=== PATIENT | male | born 1940 | race Caucasian/White ===

== ENCOUNTER → 2018-12-28 | Outpatient (CLI) | payer MEDICARE, OTHER | LOC: RAD 15:00 | DX: R05 Cough (principal) ==

== ENCOUNTER → 2019-07-01 | Outpatient (CLI) | payer MEDICARE, OTHER ==
[2019-07-01 10:38] LABS: PH-URINE 5.5 (5.0 - 8.0); URINE APPEARANCE CLOUDY; URINE BILIRUBIN NEGATIVE (NEGATIVE); URINE BLOOD 50 ery/uL (NEGATIVE); URINE COLOR YELLOW; URINE GLUCOSE NEGATIVE (NEGATIVE); URINE KETONE NEGATIVE (NEGATIVE); URINE LEUKOCYTE ESTERASE 2+ (NEGATIVE); URINE MUCUS PRESENT (NOT PRESENT); URINE NITRATE POSITIVE (NEGATIVE); URINE PROTEIN(semi-quant) TRACE mg/dL (NEGATIVE); URINE UROBILINOGEN NORMAL (NORMAL); URINE WBC 31-50 /hpf (0-3)
== END ==
LOC: LAB 09:00
PROVIDERS: Nurse Practitioner
DX: R10.9 Unspecified abdominal pain (principal)

== ENCOUNTER → 2019-08-07 | Outpatient (CLI) | payer MEDICARE, OTHER | LOC: LAB 09:05 | DX: N30.01 Acute cystitis with hematuria (principal) ==

== ENCOUNTER → 2019-08-15 | Outpatient (CLI) | payer MEDICARE, OTHER ==
[2019-08-15 11:15] LABS: ALBUMIN 3.9 g/dL (3.4-4.8); POTASSIUM 4.3 mmol/L (3.5-5.1)
[2019-08-15 11:16] LABS: CALCIUM 9.3 mg/dL (8.3-10.5)
[2019-08-15 11:17] LABS: TOTAL PROTEIN 7.3 g/dL (6.2-8.1)
[2019-08-15 11:19] LABS: TOTAL BILIRUBIN 0.5 mg/dL (0.2-1.2)
[2019-08-15 11:24] LABS: MAGNESIUM 1.97 mg/dL (1.60-2.60)
[2019-08-15 11:43] LABS: HEMATOCRIT 44.6 % (42.0-52.0); HEMOGLOBIN 14.8 g/dL (13.5-18.0); MEAN CELL VOLUME 92 fl (78-100); MEAN CORPUSCULAR HEMOGLOBIN 31 pg (27-31); MEAN CORPUSCULAR HGB CONC 33 g/dL (33-37); MEAN PLATELET VOLUME 8.5 fl (7.4-10.4); PLATELET COUNT 301 K/mm3 (130-400); RED BLOOD COUNT 4.83 M/mm3 (4.20-5.60); WHITE BLOOD COUNT 6.3 K/mm3 (4.8-10.8)
[2019-08-15 12:00] LABS: LYMPHOCYTE 21 % (20-51); MONOCYTE 8 % (3-10); NEUTROPHILS 69 % (42-75)
[2019-08-15 12:43] LABS: ERYTHROCYTE SEDIMENTATION RATE 20 mm/hr (0-20)
[2019-08-16 01:31] LABS: TESTOSTERONE 183 ng/dL (221-716)
== END ==
LOC: LAB 10:49
PROVIDERS: Internal Medicine
DX: Z12.5 Encounter for screening for malignant neoplasm of prostate (principal); Z12.11 Encounter for screening for malignant neoplasm of colon; E78.2 Mixed hyperlipidemia; N52.9 Male erectile dysfunction, unspecified; D64.9 Anemia, unspecified; R20.2 Paresthesia of skin

== ENCOUNTER → 2019-08-28 | Outpatient (CLI) | payer MEDICARE, OTHER | LOC: LAB 07:50 | DX: N39.0 Urinary tract infection, site not specified (principal) ==

== ENCOUNTER → 2019-09-04 | Outpatient (CLI) | payer MEDICARE, OTHER ==
[2019-09-04 18:07] LABS: FOLLICLE STIMULATING HORMONE 3.2 mIU/mL (1.0-12.0); LUTENIZING HORMONE 1.7 mIU/mL (0.6-12.1); PROLACTIN AMS 7.7 ng/mL (3.5-19.4)
== END ==
LOC: LAB 07:05
PROVIDERS: Internal Medicine
DX: E23.0 Hypopituitarism (principal)

== ENCOUNTER 2019-09-21 09:44 | Emergency (ER) | payer MEDICARE, OTHER ==
[2019-09-21] MEDS ORDERED: CALCIUM 600 MG-1 TAB PO (10:02)
[2019-09-21] MEDS ORDERED: BUSPIRONE HYDRO10 MG PO (10:03)
[2019-09-21 10:47] LABS: HEMATOCRIT 42.8 % (42.0-52.0); HEMOGLOBIN 14.3 g/dL (13.5-18.0); MEAN CELL VOLUME 94 fl (78-100); MEAN CORPUSCULAR HEMOGLOBIN 31 pg (27-31); MEAN CORPUSCULAR HGB CONC 33 g/dL (33-37); MEAN PLATELET VOLUME 8.1 fl (7.4-10.4); PLATELET COUNT 279 K/mm3 (130-400); RED BLOOD COUNT 4.57 M/mm3 (4.20-5.60); RED CELL DISTRIBUTION WIDTH 14.6 % (11.5-14.5); WHITE BLOOD COUNT 7.3 K/mm3 (4.8-10.8)
[2019-09-21 10:52] LABS: ALBUMIN 3.7 g/dL (3.4-4.8)
[2019-09-21 10:53] LABS: POTASSIUM 3.9 mmol/L (3.5-5.1)
[2019-09-21 10:54] LABS: CALCIUM 8.9 mg/dL (8.3-10.5)
[2019-09-21 10:55] LABS: TOTAL PROTEIN 6.7 g/dL (6.2-8.1)
[2019-09-21 10:57] LABS: TOTAL BILIRUBIN 0.9 mg/dL (0.2-1.2)
[2019-09-21 11:10] LABS: LYMPHOCYTE 16 % (20-51); MONOCYTE 12 % (3-10); NEUTROPHILS 70 % (42-75)
[2019-09-21 11:55] VITALS: BP 134/86
== END 2019-09-21 11:56 | disposition home or self-care (01) ==
LOC: ED 09:44
PROVIDERS: Family Medicine
DX: G40.909 Epilepsy, unspecified, not intractable, without status epilepticus (principal); Z90.89 Acquired absence of other organs

== ENCOUNTER 2020-03-31 16:12 | Emergency (ER) | payer MEDICARE, OTHER ==
[~2020-03-31] VITALS: Ht 182.9 cm; Wt 100.3 kg
[~2020-03-31 16:12] MED LIST: BUSPIRONE HYDRO10 MG PO; CALCIUM 600 MG-1 TAB PO
[2020-03-31 17:13] LABS: HEMATOCRIT 49.7 % (42.0-52.0); HEMOGLOBIN 16.9 g/dL (13.5-18.0); MEAN CELL VOLUME 93 fl (78-100); MEAN CORPUSCULAR HEMOGLOBIN 32 pg (27-31); MEAN CORPUSCULAR HGB CONC 34 g/dL (33-37); MEAN PLATELET VOLUME 8.2 fl (7.4-10.4); PLATELET COUNT 268 K/mm3 (130-400); RED BLOOD COUNT 5.35 M/mm3 (4.20-5.60); RED CELL DISTRIBUTION WIDTH 14.4 % (11.5-14.5)
[2020-03-31 17:23] LABS: POTASSIUM 4.2 mmol/L (3.5-5.1); SODIUM 139 mmol/L (136-145)
[2020-03-31 17:25] LABS: CALCIUM 9.4 mg/dL (8.3-10.5)
[2020-03-31 17:26] LABS: GLUCOSE 123 mg/dL (75-110); TOTAL PROTEIN 7.2 g/dL (6.2-8.1)
[2020-03-31 17:28] LABS: TOTAL BILIRUBIN 0.4 mg/dL (0.2-1.2)
[2020-03-31 17:30] LABS: LYMPHOCYTE 6 % (20-51); MONOCYTE 10 % (3-10); NEUTROPHILS 82 % (42-75)
[2020-03-31 17:31] LABS: AST-SGOT 30 U/L (5-34)
[2020-03-31 17:32] LABS: ALT/SGPT 27 U/L (0-55)
[2020-03-31 17:35] LABS: CARBON DIOXIDE 14 mmol/L (23-31)
[2020-03-31 17:38] LABS: TROPONIN-I < 0.03 ng/mL (<0.030)
[2020-03-31] MEDS ORDERED: SERTRALINE50 MG PO (17:40)
[2020-03-31] MEDS ORDERED: QUETIAPINE FUMA25 M3 PO (17:45)
[2020-03-31] MEDS ORDERED: BACTRIM DS TAB1 EACH PO (17:50)
[2020-03-31 19:41] LABS: URINE APPEARANCE CLOUDY; URINE BILIRUBIN NEGATIVE (NEGATIVE); URINE BLOOD TRACE (NEGATIVE); URINE COLOR YELLOW; URINE GLUCOSE NEGATIVE (NEGATIVE); URINE KETONE NEGATIVE (NEGATIVE); URINE LEUKOCYTE ESTERASE 1+ (NEGATIVE); URINE NITRATE POSITIVE (NEGATIVE); URINE PROTEIN(semi-quant) 1+ mg/dL (NEGATIVE); URINE UROBILINOGEN NORMAL (NORMAL); URINE WBC 16-30 /hpf (0-3)
[2020-03-31 21:18] VITALS: BP 144/85
== END 2020-03-31 21:18 | disposition short-term general hospital (02) ==
LOC: ED 16:12
PROVIDERS: Nurse Practitioner Family
DX: N17.9 Acute kidney failure, unspecified (principal); N39.0 Urinary tract infection, site not specified; G40.89 Other seizures; R42 Dizziness and giddiness; F32.9 Major depressive disorder, single episode, unspecified
CPT/HCPCS: J0696; J1953; J7030

== ENCOUNTER → 2020-04-10 | Outpatient (CLI) | payer MEDICARE, OTHER ==
[2020-03-31 21:18] VITALS: BP 144/85
[~2020-04-10] MED LIST changes: +BACTRIM DS TAB1 EACH PO; +QUETIAPINE FUMA25 M3 PO; +SERTRALINE50 MG PO
[2020-04-10 16:38] LABS: HEMATOCRIT 50.8 % (42.0-52.0); HEMOGLOBIN 16.4 g/dL (13.5-18.0); MEAN CELL VOLUME 98 fl (78-100); MEAN CORPUSCULAR HEMOGLOBIN 32 pg (27-31); MEAN CORPUSCULAR HGB CONC 32 g/dL (33-37); MEAN PLATELET VOLUME 9.5 fl (7.4-10.4); PLATELET COUNT 143 K/mm3 (130-400); RED BLOOD COUNT 5.18 M/mm3 (4.20-5.60); RED CELL DISTRIBUTION WIDTH 14.2 % (11.5-14.5); WHITE BLOOD COUNT 6.9 K/mm3 (4.8-10.8)
[2020-04-10 16:45] LABS: ALBUMIN 3.8 g/dL (3.4-4.8)
[2020-04-10 16:46] LABS: POTASSIUM 4.5 mmol/L (3.5-5.1)
[2020-04-10 16:47] LABS: CALCIUM 8.9 mg/dL (8.3-10.5)
[2020-04-10 16:48] LABS: TOTAL PROTEIN 7.2 g/dL (6.2-8.1)
[2020-04-10 16:50] LABS: TOTAL BILIRUBIN 0.3 mg/dL (0.2-1.2)
[2020-04-10 16:52] LABS: LYMPHOCYTE 20 % (20-51); MONOCYTE 12 % (3-10); NEUTROPHILS 60 % (42-75)
== END ==
LOC: LAB 16:14
PROVIDERS: Internal Medicine
DX: F44.5 Conversion disorder with seizures or convulsions (principal); R20.2 Paresthesia of skin

== ENCOUNTER → 2020-05-04 | Outpatient (CLI) | payer MEDICARE, OTHER ==
[2020-05-04 12:09] LABS: HEMATOCRIT 49.7 % (42.0-52.0); HEMOGLOBIN 16.4 g/dL (13.5-18.0); MEAN CELL VOLUME 95 fl (78-100); MEAN CORPUSCULAR HEMOGLOBIN 32 pg (27-31); MEAN CORPUSCULAR HGB CONC 33 g/dL (33-37); MEAN PLATELET VOLUME 8.7 fl (7.4-10.4); PLATELET COUNT 214 K/mm3 (130-400); RED BLOOD COUNT 5.21 M/mm3 (4.20-5.60); WHITE BLOOD COUNT 6.7 K/mm3 (4.8-10.8)
[2020-05-04 12:20] LABS: LYMPHOCYTE 20 % (20-51); MONOCYTE 11 % (3-10); NEUTROPHILS 68 % (42-75)
[2020-05-04 12:24] LABS: ALBUMIN 3.9 g/dL (3.4-4.8)
[2020-05-04 12:25] LABS: POTASSIUM 4.7 mmol/L (3.5-5.1)
[2020-05-04 12:27] LABS: TOTAL PROTEIN 7.2 g/dL (6.2-8.1)
[2020-05-04 12:29] LABS: TOTAL BILIRUBIN 0.4 mg/dL (0.2-1.2)
== END ==
LOC: LAB 11:55
PROVIDERS: Internal Medicine
DX: F44.5 Conversion disorder with seizures or convulsions (principal); R20.2 Paresthesia of skin

== ENCOUNTER → 2020-05-07 | Day surgery (SDC) | payer MEDICARE, OTHER | LOC: MSO 07:05 | DX: K21.9 Gastro-esophageal reflux disease without esophagitis (principal); K22.2 Esophageal obstruction; G47.33 Obstructive sleep apnea (adult) (pediatric); F41.9 Anxiety disorder, unspecified; Z92.21 Personal history of antineoplastic chemotherapy; Z88.1 Allergy status to other antibiotic agents; Z79.52 Long term (current) use of systemic steroids; Z90.49 Acquired absence of other specified parts of digestive tract; Z85.51 Personal history of malignant neoplasm of bladder; Z96.653 Presence of artificial knee joint, bilateral | CPT/HCPCS: 00731; C1769; J2704; J7120 ==

== ENCOUNTER → 2020-05-11 | Outpatient (CLI) | payer MEDICARE, OTHER | LOC: RAD 10:58 | DX: M25.512 Pain in left shoulder (principal) ==

== ENCOUNTER → 2020-05-19 | Outpatient (CLI) | payer MEDICARE, OTHER | LOC: RAD 08:08 | DX: M75.112 Incomplete rotator cuff tear or rupture of left shoulder, not specified as traumatic (principal); S43.002A Unspecified subluxation of left shoulder joint, initial encounter; M19.012 Primary osteoarthritis, left shoulder; M67.814 Other specified disorders of tendon, left shoulder ==

== ENCOUNTER 2020-06-30 08:30 | Outpatient (RCR) | payer MEDICARE | END 2020-06-30 09:00 | disposition still patient (30) | LOC: PT 08:30 | DX: M25.512 Pain in left shoulder (principal) ==

== ENCOUNTER → 2020-08-13 | Outpatient (CLI) | payer MEDICARE ==
[2020-08-13 09:45] LABS: HEMATOCRIT 50.4 % (42.0-52.0); HEMOGLOBIN 16.6 g/dL (13.5-18.0); MEAN CELL VOLUME 96 fl (78-100); MEAN CORPUSCULAR HEMOGLOBIN 32 pg (27-31); MEAN CORPUSCULAR HGB CONC 33 g/dL (33-37); MEAN PLATELET VOLUME 9.1 fl (7.4-10.4); PLATELET COUNT 224 K/mm3 (130-400); RED BLOOD COUNT 5.23 M/mm3 (4.20-5.60); RED CELL DISTRIBUTION WIDTH 13.8 % (11.5-14.5); WHITE BLOOD COUNT 5.9 K/mm3 (4.8-10.8)
[2020-08-13 09:46] LABS: ALBUMIN 3.8 g/dL (3.4-4.8)
[2020-08-13 09:47] LABS: POTASSIUM 4.2 mmol/L (3.5-5.1)
[2020-08-13 09:48] LABS: CALCIUM 8.7 mg/dL (8.3-10.5)
[2020-08-13 09:49] LABS: TOTAL PROTEIN 7.2 g/dL (6.2-8.1)
[2020-08-13 09:51] LABS: TOTAL BILIRUBIN 0.6 mg/dL (0.2-1.2)
[2020-08-13 10:32] LABS: LYMPHOCYTE 27 % (20-51); MONOCYTE 15 % (3-10); NEUTROPHILS 55 % (42-75)
== END ==
LOC: LAB 08:43
DX: Z51.81 Encounter for therapeutic drug level monitoring (principal); Z79.899 Other long term (current) drug therapy

== ENCOUNTER → 2020-09-11 | Outpatient (CLI) | payer MEDICARE | LOC: RAD 10:33 | DX: M19.032 Primary osteoarthritis, left wrist (principal); M25.832 Other specified joint disorders, left wrist ==

== ENCOUNTER → 2020-09-18 | Outpatient (CLI) | payer MEDICARE ==
[~2020-09-18] MED LIST changes: +CEFDINIR300 MG PO; +CLARITIN 1010 MG/TAB PO; +DIVALPROEX SOD500 M2 PO; +PANTOPRAZOLE SO40 MG PO; +TESTOSTERO200 MG/1 M IM; +TRAMADOL 50 MG TAB PO; +[UNRECOGNIZED DRUG - CODE] PO
== END ==
LOC: CARDREHAB 07:50
DX: R06.09 Other forms of dyspnea (principal)
CPT/HCPCS: A9500

== ENCOUNTER 2020-09-21 01:51 | Emergency (ER) | payer MEDICARE ==
[~2020-09-21 01:51] MED LIST changes: -CEFDINIR300 MG PO; -CLARITIN 1010 MG/TAB PO; -DIVALPROEX SOD500 M2 PO; -PANTOPRAZOLE SO40 MG PO; -TESTOSTERO200 MG/1 M IM; -TRAMADOL 50 MG TAB PO; -[UNRECOGNIZED DRUG - CODE] PO
[2020-09-21] MEDS ORDERED: TESTOSTERO200 MG/1 M IM (02:10)
[2020-09-21] MEDS ORDERED: PANTOPRAZOLE SO40 MG PO (02:11)
[2020-09-21] MEDS ORDERED: DIVALPROEX SOD500 M2 PO (02:11)
[2020-09-21] MEDS ORDERED: CLARITIN 1010 MG/TAB PO (02:11)
[2020-09-21] MEDS ORDERED: [UNRECOGNIZED DRUG - CODE] PO (02:11)
[2020-09-21] MEDS ORDERED: TRAMADOL 50 MG TAB PO (02:11)
[2020-09-21 02:39] LABS: HEMOGLOBIN 15.6 g/dL (13.5-18.0); MEAN CELL VOLUME 95 fl (78-100); MEAN CORPUSCULAR HEMOGLOBIN 32 pg (27-31); MEAN CORPUSCULAR HGB CONC 33 g/dL (33-37); MEAN PLATELET VOLUME 8.9 fl (7.4-10.4); PLATELET COUNT 191 K/mm3 (130-400); RED BLOOD COUNT 4.94 M/mm3 (4.20-5.60); RED CELL DISTRIBUTION WIDTH 14.1 % (11.5-14.5); WHITE BLOOD COUNT 14.6 K/mm3 (4.8-10.8)
[2020-09-21 02:49] LABS: URINE APPEARANCE CLOUDY; URINE BILIRUBIN NEGATIVE (NEGATIVE); URINE BLOOD 50 ery/uL (NEGATIVE); URINE COLOR YELLOW; URINE GLUCOSE NEGATIVE (NEGATIVE); URINE KETONE NEGATIVE (NEGATIVE); URINE NITRATE POSITIVE (NEGATIVE); URINE PROTEIN(semi-quant) 2+ mg/dL (NEGATIVE); URINE UROBILINOGEN NORMAL (NORMAL)
[2020-09-21 02:50] LABS: URINE LEUKOCYTE ESTERASE 2+ (NEGATIVE); URINE WBC >50 /hpf (0-3)
[2020-09-21 02:50] LABS: POTASSIUM 4.3 mmol/L (3.5-5.1)
[2020-09-21 02:51] LABS: CALCIUM 8.9 mg/dL (8.3-10.5)
[2020-09-21 03:00] LABS: BAND 1 % (0-10); LYMPHOCYTE 8 % (20-51); MONOCYTE 17 % (3-10); NEUTROPHILS 74 % (42-75)
[2020-09-21 06:32] VITALS: BP 117/80
== END 2020-09-21 06:35 | disposition other institution (70) ==
LOC: ED 01:51
PROVIDERS: Family Medicine
DX: N17.9 Acute kidney failure, unspecified (principal); N18.9 Chronic kidney disease, unspecified; N39.0 Urinary tract infection, site not specified; E86.9 Volume depletion, unspecified; G40.909 Epilepsy, unspecified, not intractable, without status epilepticus; K21.9 Gastro-esophageal reflux disease without esophagitis; Z20.828 Contact with and (suspected) exposure to other viral communicable diseases; Z87.820 Personal history of traumatic brain injury
CPT/HCPCS: J0696; J7030

== ENCOUNTER 2020-09-21 06:25 | Inpatient (IN) | payer MEDICARE ==
[~2020-09-21] VITALS: Ht 180.3 cm; Wt 102.6 kg
[~2020-09-21 06:25] MED LIST changes: +CLARITIN 1010 MG/TAB PO; +DIVALPROEX SOD500 M2 PO; +PANTOPRAZOLE SO40 MG PO; +TESTOSTERO200 MG/1 M IM; +TRAMADOL 50 MG TAB PO; +[UNRECOGNIZED DRUG - CODE] PO
[2020-09-21 06:39] VITALS: BP 117/80
--- NOTE | 2020-09-21 08:30 | NUR ---
THE PT IS NOTED TO FREQUENTLY GET OUT OF BED WITHOUT CALLING, SETTING OFF BED ALARM MULTIPLE TIMES. PT IS RE-EDUCATED MULTIPLE TIMES REGARDING FALL PRECAUTIONS. PT CONTINUES TO DISREGARD PRECAUTIONS. PT IS NOTED TO BE STEADY ON FEET AND BED ALARM IS ON AT THIS TIME.
--- NOTE | 2020-09-21 09:52 | NUR ---
PT REQUESTS HIS CAT TO BE BROUGHT TO THE HOSPITAL. THIS RN EDUCATES THE PT THAT WE DO NOT ALLOW CATS IN FACILITY.
[2020-09-21 09:57] VITALS: BP 140/89
[2020-09-21 10:42] LABS: HEMATOCRIT 43.2 % (42.0-52.0); HEMOGLOBIN 14.2 g/dL (13.5-18.0); MEAN CELL VOLUME 96 fl (78-100); MEAN CORPUSCULAR HEMOGLOBIN 32 pg (27-31); MEAN CORPUSCULAR HGB CONC 33 g/dL (33-37); MEAN PLATELET VOLUME 8.9 fl (7.4-10.4); PLATELET COUNT 181 K/mm3 (130-400); RED BLOOD COUNT 4.51 M/mm3 (4.20-5.60); RED CELL DISTRIBUTION WIDTH 13.9 % (11.5-14.5); WHITE BLOOD COUNT 12.9 K/mm3 (4.8-10.8)
[2020-09-21 10:46] LABS: ALBUMIN 3.4 g/dL (3.4-4.8); POTASSIUM 4.2 mmol/L (3.5-5.1)
[2020-09-21 10:47] LABS: CALCIUM 8.3 mg/dL (8.3-10.5)
[2020-09-21 10:48] LABS: TOTAL PROTEIN 6.5 g/dL (6.2-8.1)
[2020-09-21 10:50] LABS: TOTAL BILIRUBIN 0.7 mg/dL (0.2-1.2)
[2020-09-21 11:20] LABS: BAND 4 % (0-10); LYMPHOCYTE 9 % (20-51); MONOCYTE 13 % (3-10); NEUTROPHILS 73 % (42-75)
[2020-09-21 14:14] VITALS: BP 143/81
[2020-09-21 17:31] VITALS: BP 141/82
--- NOTE | 2020-09-21 20:45 | NUR ---
Patient rests in bed. Denies shortness of breath, couph or pain. Alert. HS meds all reviewed and taken without problems. Home CPAP brought into patient and nurse assists to plug in, patient assembles, inserts distilled water and applies.
[2020-09-21 21:09] VITALS: BP 126/75
[2020-09-22 01:40] VITALS: BP 144/90
--- NOTE | 2020-09-22 02:30 | NUR ---
Patient awakened for IV ABT. Reports he's been sleeping well.
[2020-09-22 04:40] VITALS: BP 128/75
--- NOTE | 2020-09-22 05:23 | NUR ---
Patient awakened for am med. Denies pain. Sprite given per request. Patient is out of covid precautions due to send out results negative.
[2020-09-22 05:51] LABS: HEMATOCRIT 42.1 % (42.0-52.0); HEMOGLOBIN 13.6 g/dL (13.5-18.0); MEAN CELL VOLUME 97 fl (78-100); MEAN CORPUSCULAR HEMOGLOBIN 31 pg (27-31); MEAN CORPUSCULAR HGB CONC 32 g/dL (33-37); PLATELET COUNT 171 K/mm3 (130-400); RED BLOOD COUNT 4.35 M/mm3 (4.20-5.60); WHITE BLOOD COUNT 8.6 K/mm3 (4.8-10.8)
[2020-09-22 05:59] LABS: CALCIUM 8.4 mg/dL (8.3-10.5)
[2020-09-22 06:57] LABS: NEUTROPHILS 78 % (42-75)
[2020-09-22 06:58] LABS: LYMPHOCYTE 6 % (20-51); MONOCYTE 15 % (3-10)
--- NOTE | 2020-09-22 09:34 | NUR ---
PT'S UPDATED ON PLAN OF CARE. PT IS ALERT AND ORIENTED AND RESPIRATIONS ARE EVEN AND UNLABORED. THE PT DENIES ANY PAIN AND/OR NEEDS AT THIS TIME.
[2020-09-22 09:48] VITALS: BP 129/80
[2020-09-22 11:06] LABS: ERYTHROCYTE SEDIMENTATION RATE 47 mm/hr (0-20)
[2020-09-22 14:15] VITALS: BP 136/86
[2020-09-22 17:14] VITALS: BP 133/78
--- NOTE | 2020-09-22 19:00 | NUR ---
Report received from Vanessa MOLINA.
--- NOTE | 2020-09-22 20:10 | NUR ---
Patient sitting up in bed watching News on TV. Denies pain or needs at this time. HS meds all reviewed and given. Urostomy draining clear yellow urine.
--- NOTE | 2020-09-22 22:00 | NUR ---
Patient reports frontal headache 03/11 and requests tylenol-given. States he does have a history of headaches.
[2020-09-22 22:15] VITALS: BP 136/90
--- NOTE | 2020-09-23 02:04 | NUR ---
Patient awakened for vitals. Reports that he's been sleeping. Denies pain or headache.
[2020-09-23 02:12] VITALS: BP 128/75
--- NOTE | 2020-09-23 05:23 | NUR ---
Awakened for med and vitals. States his urostomy bag fell off earlier and he changed it out. Denies needs.
[2020-09-23 06:02] VITALS: BP 125/70
--- NOTE | 2020-09-23 06:55 | NUR ---
Report received from TRACY Nguyen.
[2020-09-23 09:15] LABS: HEMATOCRIT 46.7 % (42.0-52.0); HEMOGLOBIN 15.4 g/dL (13.5-18.0); MEAN CELL VOLUME 96 fl (78-100); MEAN CORPUSCULAR HEMOGLOBIN 32 pg (27-31); MEAN CORPUSCULAR HGB CONC 33 g/dL (33-37); MEAN PLATELET VOLUME 8.9 fl (7.4-10.4); PLATELET COUNT 208 K/mm3 (130-400); RED BLOOD COUNT 4.89 M/mm3 (4.20-5.60); RED CELL DISTRIBUTION WIDTH 14.1 % (11.5-14.5); WHITE BLOOD COUNT 6.4 K/mm3 (4.8-10.8)
[2020-09-23 09:25] LABS: ALBUMIN 3.7 g/dL (3.4-4.8); POTASSIUM 4.2 mmol/L (3.5-5.1)
[2020-09-23 09:26] LABS: CALCIUM 9.1 mg/dL (8.3-10.5)
[2020-09-23 09:27] LABS: TOTAL PROTEIN 7.4 g/dL (6.2-8.1)
[2020-09-23 09:29] LABS: TOTAL BILIRUBIN 0.6 mg/dL (0.2-1.2)
[2020-09-23 09:42] VITALS: BP 145/93
[2020-09-23 09:59] LABS: LYMPHOCYTE 26 % (20-51); MONOCYTE 18 % (3-10); NEUTROPHILS 55 % (42-75)
--- NOTE | 2020-09-23 10:01 | NUR ---
Provider in room with pt.
[2020-09-23] MEDS ORDERED: CEFDINIR300 MG PO (10:09)
--- NOTE | 2020-09-23 11:15 | NUR ---
Pt to be discharged home today. called and notified of discharge. She will provide transportation home. Discharge instructions provided. Pt denied any questions or concerns at this time.
--- NOTE | 2020-09-23 11:45 | NUR ---
Pt escorted out of facilty to his 's POV with all belongs.
== END 2020-09-23 11:45 | disposition home or self-care (01) | DRG 690 ==
LOC: MED/SURG 06:25
PROVIDERS: Physician Assistant; ADMIT Family Medicine
PROC: 5A09357 Assistance with Respiratory Ventilation, Less than 24 Consecutive Hours, Continuous Positive Airway Pressure (ICD-10-PCS; principal; 2020-09-21)
DX: N39.0 Urinary tract infection, site not specified (principal); N17.9 Acute kidney failure, unspecified; G47.30 Sleep apnea, unspecified; G40.909 Epilepsy, unspecified, not intractable, without status epilepticus; N18.9 Chronic kidney disease, unspecified; K21.9 Gastro-esophageal reflux disease without esophagitis; K22.2 Esophageal obstruction; F41.9 Anxiety disorder, unspecified; K59.00 Constipation, unspecified; Z20.828 Contact with and (suspected) exposure to other viral communicable diseases; Z79.891 Long term (current) use of opiate analgesic; Z79.890 Hormone replacement therapy; Z85.51 Personal history of malignant neoplasm of bladder; Z87.820 Personal history of traumatic brain injury
CPT/HCPCS: J0696; J1650

== ENCOUNTER → 2020-12-21 | Outpatient (CLI) | payer MEDICARE ==
[~2020-12-21] MED LIST changes: +CEFDINIR300 MG PO; +CIPRO500 M1 PO; +MACROBID 100 M100 MG PO; +PERCOCET 325 MG1 TA2 PO; +VALIUM 2MG T2 MG/TAB PO; +ZOLOFT 100MG100 MG PO
[2020-12-21 10:16] LABS: HEMATOCRIT 52.5 % (42.0-52.0); HEMOGLOBIN 17.2 g/dL (13.5-18.0); MEAN CELL VOLUME 96 fl (78-100); MEAN CORPUSCULAR HEMOGLOBIN 31 pg (27-31); MEAN CORPUSCULAR HGB CONC 33 g/dL (33-37); MEAN PLATELET VOLUME 9.1 fl (7.4-10.4); PLATELET COUNT 220 K/mm3 (130-400); RED BLOOD COUNT 5.49 M/mm3 (4.20-5.60); RED CELL DISTRIBUTION WIDTH 13.8 % (11.5-14.5); WHITE BLOOD COUNT 6.6 K/mm3 (4.8-10.8)
[2020-12-21 10:20] LABS: ALBUMIN 4.2 g/dL (3.4-4.8); POTASSIUM 4.5 mmol/L (3.5-5.1)
[2020-12-21 10:21] LABS: CALCIUM 9.1 mg/dL (8.3-10.5)
[2020-12-21 10:23] LABS: TOTAL PROTEIN 7.7 g/dL (6.2-8.1)
[2020-12-21 10:24] LABS: TOTAL BILIRUBIN 0.7 mg/dL (0.2-1.2)
[2020-12-21 10:33] LABS: BAND 1 % (0-10); LYMPHOCYTE 18 % (20-51); MONOCYTE 11 % (3-10); NEUTROPHILS 68 % (42-75)
[2020-12-25 21:38] LABS: TESTOSTERONE 94 ng/dL (221-716)
== END ==
LOC: LAB 09:15
PROVIDERS: Internal Medicine
DX: Z12.5 Encounter for screening for malignant neoplasm of prostate (principal); E23.7 Disorder of pituitary gland, unspecified; E78.2 Mixed hyperlipidemia; G40.909 Epilepsy, unspecified, not intractable, without status epilepticus

== ENCOUNTER 2021-01-12 06:42 | Emergency (ER) | payer MEDICARE ==
[~2021-01-12 06:42] MED LIST changes: -CIPRO500 M1 PO; -MACROBID 100 M100 MG PO; -PERCOCET 325 MG1 TA2 PO; -VALIUM 2MG T2 MG/TAB PO; -ZOLOFT 100MG100 MG PO
[2021-01-12 07:41] LABS: HEMATOCRIT 47.6 % (42.0-52.0); HEMOGLOBIN 16.1 g/dL (13.5-18.0); MEAN CELL VOLUME 95 fl (78-100); MEAN CORPUSCULAR HEMOGLOBIN 32 pg (27-31); MEAN CORPUSCULAR HGB CONC 34 g/dL (33-37); MEAN PLATELET VOLUME 8.9 fl (7.4-10.4); PLATELET COUNT 214 K/mm3 (130-400); RED BLOOD COUNT 5.03 M/mm3 (4.20-5.60); WHITE BLOOD COUNT 13.8 K/mm3 (4.8-10.8)
[2021-01-12 08:14] LABS: LYMPHOCYTE 11 % (20-51); MONOCYTE 13 % (3-10); NEUTROPHILS 75 % (42-75)
[2021-01-12 08:18] LABS: ALBUMIN 3.6 g/dL (3.4-4.8); POTASSIUM 4.3 mmol/L (3.5-5.1)
[2021-01-12 08:19] LABS: PH-URINE 6.5 (5.0 - 8.0); URINE APPEARANCE CLOUDY; URINE BILIRUBIN NEGATIVE (NEGATIVE); URINE BLOOD 250 ery/uL (NEGATIVE); URINE COLOR YELLOW; URINE GLUCOSE NEGATIVE (NEGATIVE); URINE KETONE SMALL (NEGATIVE); URINE LEUKOCYTE ESTERASE 2+ (NEGATIVE); URINE NITRATE POSITIVE (NEGATIVE); URINE PROTEIN(semi-quant) 1+ mg/dL (NEGATIVE); URINE UROBILINOGEN NORMAL (NORMAL); URINE WBC >50 /hpf (0-3)
[2021-01-12 08:19] LABS: CALCIUM 8.6 mg/dL (8.3-10.5)
[2021-01-12 08:20] LABS: TOTAL PROTEIN 6.7 g/dL (6.2-8.1)
[2021-01-12 08:22] LABS: TOTAL BILIRUBIN 1.2 mg/dL (0.2-1.2)
[2021-01-12] MEDS ORDERED: CIPRO500 M1 PO (09:57)
[2021-01-12 10:20] VITALS: BP 132/83
== END 2021-01-12 10:06 | disposition home or self-care (01) ==
LOC: ED 06:42
PROVIDERS: Nurse Practitioner
DX: N39.0 Urinary tract infection, site not specified (principal); G40.409 Other generalized epilepsy and epileptic syndromes, not intractable, without status epilepticus; K21.9 Gastro-esophageal reflux disease without esophagitis; Z87.442 Personal history of urinary calculi; Z85.51 Personal history of malignant neoplasm of bladder
CPT/HCPCS: J0696; J7030

== ENCOUNTER 2021-01-18 04:59 | Emergency (ER) | payer MEDICARE ==
[~2021-01-18 04:59] MED LIST changes: +CIPRO500 M1 PO
[2021-01-18] MEDS ORDERED: ZOLOFT 100MG100 MG PO (05:18)
[2021-01-18 06:20] LABS: HEMATOCRIT 50.8 % (42.0-52.0); HEMOGLOBIN 16.4 g/dL (13.5-18.0); MEAN CELL VOLUME 97 fl (78-100); MEAN CORPUSCULAR HEMOGLOBIN 31 pg (27-31); MEAN CORPUSCULAR HGB CONC 32 g/dL (33-37); MEAN PLATELET VOLUME 8.5 fl (7.4-10.4); PLATELET COUNT 320 K/mm3 (130-400); RED BLOOD COUNT 5.24 M/mm3 (4.20-5.60); RED CELL DISTRIBUTION WIDTH 13.9 % (11.5-14.5); WHITE BLOOD COUNT 7.1 K/mm3 (4.8-10.8)
[2021-01-18 06:33] LABS: ALBUMIN 3.6 g/dL (3.4-4.8)
[2021-01-18 06:34] LABS: POTASSIUM 4.6 mmol/L (3.5-5.1)
[2021-01-18 06:35] LABS: CALCIUM 8.7 mg/dL (8.3-10.5)
[2021-01-18 06:36] LABS: TOTAL PROTEIN 7.4 g/dL (6.2-8.1)
[2021-01-18 06:38] LABS: TOTAL BILIRUBIN 0.4 mg/dL (0.2-1.2)
[2021-01-18 06:47] LABS: LYMPHOCYTE 23 % (20-51); MONOCYTE 12 % (3-10); NEUTROPHILS 62 % (42-75)
[2021-01-18 06:51] LABS: URINE APPEARANCE CLOUDY; URINE BILIRUBIN NEGATIVE (NEGATIVE); URINE BLOOD 250 ery/uL (NEGATIVE); URINE COLOR YELLOW; URINE GLUCOSE NEGATIVE (NEGATIVE); URINE KETONE NEGATIVE (NEGATIVE); URINE LEUKOCYTE ESTERASE 2+ (NEGATIVE); URINE NITRATE NEGATIVE (NEGATIVE); URINE PROTEIN(semi-quant) 1+ mg/dL (NEGATIVE); URINE UROBILINOGEN NORMAL (NORMAL)
[2021-01-18] MEDS ORDERED: MACROBID 100 M100 MG PO (09:03)
[2021-01-18] MEDS ORDERED: VALIUM 2MG T2 MG/TAB PO (09:08)
[2021-01-18 09:09] VITALS: BP 131/81
== END 2021-01-18 09:10 | disposition home or self-care (01) ==
LOC: ED 04:59
PROVIDERS: Family Medicine
DX: N39.0 Urinary tract infection, site not specified (principal); G40.909 Epilepsy, unspecified, not intractable, without status epilepticus

== ENCOUNTER 2021-01-23 13:03 | Emergency (ER) | payer MEDICARE ==
[~2021-01-23 13:03] MED LIST changes: +MACROBID 100 M100 MG PO; +VALIUM 2MG T2 MG/TAB PO; +ZOLOFT 100MG100 MG PO
[2021-01-23 14:34] LABS: HEMATOCRIT 55.2 % (42.0-52.0); HEMOGLOBIN 18.4 g/dL (13.5-18.0); MEAN CELL VOLUME 92 fl (78-100); MEAN CORPUSCULAR HEMOGLOBIN 31 pg (27-31); MEAN CORPUSCULAR HGB CONC 33 g/dL (33-37); MEAN PLATELET VOLUME 8.3 fl (7.4-10.4); PLATELET COUNT 494 K/mm3 (130-400); RED BLOOD COUNT 6.03 M/mm3 (4.20-5.60); RED CELL DISTRIBUTION WIDTH 13.5 % (11.5-14.5); WHITE BLOOD COUNT 12.7 K/mm3 (4.8-10.8)
[2021-01-23 14:43] LABS: ALBUMIN 4.2 g/dL (3.4-4.8); POTASSIUM 4.7 mmol/L (3.5-5.1)
[2021-01-23 14:44] LABS: CALCIUM 10.5 mg/dL (8.3-10.5)
[2021-01-23 14:45] LABS: TOTAL PROTEIN 8.4 g/dL (6.2-8.1)
[2021-01-23 14:47] LABS: TOTAL BILIRUBIN 0.6 mg/dL (0.2-1.2)
[2021-01-23 14:54] LABS: BAND 1 % (0-10); LYMPHOCYTE 9 % (20-51); MONOCYTE 7 % (3-10); NEUTROPHILS 83 % (42-75)
[2021-01-23 15:16] LABS: URINE APPEARANCE CLOUDY; URINE BILIRUBIN NEGATIVE (NEGATIVE); URINE BLOOD 50 ery/uL (NEGATIVE); URINE COLOR YELLOW; URINE GLUCOSE NEGATIVE (NEGATIVE); URINE KETONE NEGATIVE (NEGATIVE); URINE LEUKOCYTE ESTERASE 2+ (NEGATIVE); URINE NITRATE POSITIVE (NEGATIVE); URINE PROTEIN(semi-quant) 2+ mg/dL (NEGATIVE); URINE UROBILINOGEN NORMAL (NORMAL)
[2021-01-23 15:17] LABS: URINE WBC 16-30 /hpf (0-3)
[2021-01-23 18:18] VITALS: BP 117/85
== END 2021-01-23 18:20 | disposition short-term general hospital (02) ==
LOC: ED 13:03
PROVIDERS: Family Medicine
DX: K56.609 Unspecified intestinal obstruction, unspecified as to partial versus complete obstruction (principal); G40.909 Epilepsy, unspecified, not intractable, without status epilepticus; Z20.822 Contact with and (suspected) exposure to COVID-19; Z90.6 Acquired absence of other parts of urinary tract
CPT/HCPCS: J3010; J7030; Q9967

== ENCOUNTER 2021-02-09 19:28 | Emergency (ER) | payer MEDICARE ==
[2021-02-09 20:20] LABS: HEMATOCRIT 43.7 % (42.0-52.0); HEMOGLOBIN 14.8 g/dL (13.5-18.0); MEAN CELL VOLUME 93 fl (78-100); MEAN CORPUSCULAR HEMOGLOBIN 32 pg (27-31); MEAN CORPUSCULAR HGB CONC 34 g/dL (33-37); MEAN PLATELET VOLUME 9.3 fl (7.4-10.4); PLATELET COUNT 153 K/mm3 (130-400); RED CELL DISTRIBUTION WIDTH 13.6 % (11.5-14.5); WHITE BLOOD COUNT 9.8 K/mm3 (4.8-10.8)
[2021-02-09 20:40] LABS: URINE APPEARANCE CLOUDY; URINE BILIRUBIN NEGATIVE (NEGATIVE); URINE BLOOD 250 ery/uL (NEGATIVE); URINE COLOR YELLOW; URINE GLUCOSE NEGATIVE (NEGATIVE); URINE KETONE 1+ (NEGATIVE); URINE LEUKOCYTE ESTERASE 2+ (NEGATIVE); URINE NITRATE POSITIVE (NEGATIVE); URINE PROTEIN(semi-quant) 1+ mg/dL (NEGATIVE); URINE UROBILINOGEN NORMAL (NORMAL); URINE WBC >50 /hpf (0-3)
[2021-02-09 21:07] LABS: ALBUMIN 3.4 g/dL (3.4-4.8)
[2021-02-09 21:08] LABS: POTASSIUM 3.7 mmol/L (3.5-5.1)
[2021-02-09 21:09] LABS: CALCIUM 8.4 mg/dL (8.3-10.5)
[2021-02-09 21:10] LABS: TOTAL PROTEIN 6.2 g/dL (6.2-8.1)
[2021-02-09 21:12] LABS: TOTAL BILIRUBIN 0.6 mg/dL (0.2-1.2)
[2021-02-09 21:18] LABS: BAND 7 % (0-10); LYMPHOCYTE 12 % (20-51); MONOCYTE 12 % (3-10); NEUTROPHILS 69 % (42-75)
[2021-02-09 21:55] VITALS: BP 119/91
== END 2021-02-09 21:55 | disposition home or self-care (01) ==
LOC: ED 19:28
PROVIDERS: Nurse Practitioner Family
DX: N39.0 Urinary tract infection, site not specified (principal); Z93.6 Other artificial openings of urinary tract status; Z90.6 Acquired absence of other parts of urinary tract; K21.9 Gastro-esophageal reflux disease without esophagitis; F32.9 Major depressive disorder, single episode, unspecified; G40.909 Epilepsy, unspecified, not intractable, without status epilepticus; Z20.822 Contact with and (suspected) exposure to COVID-19; Z87.448 Personal history of other diseases of urinary system; Z79.2 Long term (current) use of antibiotics; Z79.899 Other long term (current) drug therapy
CPT/HCPCS: J0696

== ENCOUNTER 2021-02-18 07:42 | Outpatient (RCR) | payer MEDICARE ==
[2021-02-10 17:00] VITALS: BP 129/76
[2021-02-12 08:01] VITALS: BP 136/86
[2021-02-13 07:50] VITALS: BP 134/91
[2021-02-14 08:08] VITALS: BP 144/96
[2021-02-15 07:52] VITALS: BP 128/94
[2021-02-16 08:00] VITALS: BP 142/87
[2021-02-17 07:58] VITALS: BP 139/92
[~2021-02-18 07:42] MED LIST changes: -PERCOCET 325 MG1 TA2 PO
[2021-02-18 07:52] VITALS: BP 132/81
== END 2021-02-18 18:00 | disposition home or self-care (01) ==
LOC: AMSURD 07:42
DX: N39.0 Urinary tract infection, site not specified (principal)
CPT/HCPCS: J0696

== ENCOUNTER → 2021-02-18 | Outpatient (CLI) | payer MEDICARE ==
[~2021-02-18] MED LIST changes: +PERCOCET 325 MG1 TA2 PO
[2021-02-18 07:52] VITALS: BP 132/81
[2021-02-18 10:21] LABS: URINE APPEARANCE CLOUDY; URINE BILIRUBIN NEGATIVE (NEGATIVE); URINE BLOOD TRACE (NEGATIVE); URINE COLOR YELLOW; URINE GLUCOSE NEGATIVE (NEGATIVE); URINE KETONE NEGATIVE (NEGATIVE); URINE LEUKOCYTE ESTERASE 1+ (NEGATIVE); URINE NITRATE NEGATIVE (NEGATIVE); URINE PROTEIN(semi-quant) 1+ mg/dL (NEGATIVE); URINE UROBILINOGEN NORMAL (NORMAL)
[2021-02-18 10:22] LABS: URINE MUCUS PRESENT (NOT PRESENT)
== END ==
LOC: LAB 09:55
PROVIDERS: Internal Medicine
DX: N39.0 Urinary tract infection, site not specified (principal)

== ENCOUNTER → 2021-03-04 | Outpatient (CLI) | payer MEDICARE ==
[2021-02-18 07:52] VITALS: BP 132/81
[~2021-03-04] MED LIST changes: +PERCOCET 325 MG1 TA2 PO
== END ==
LOC: LAB 15:41
DX: E23.7 Disorder of pituitary gland, unspecified (principal)

== ENCOUNTER → 2021-03-29 | Outpatient (CLI) | payer MEDICARE ==
[2021-03-29 17:44] LABS: URINE APPEARANCE CLOUDY; URINE COLOR YELLOW
[2021-03-29 17:47] LABS: URINE BILIRUBIN 1+ (NEGATIVE); URINE GLUCOSE NEGATIVE (NEGATIVE); URINE KETONE NEGATIVE (NEGATIVE); URINE PROTEIN(semi-quant) 2+ mg/dL (NEGATIVE); URINE UROBILINOGEN NORMAL (NORMAL)
[2021-03-29 17:48] LABS: URINE BLOOD 250 ery/uL (NEGATIVE); URINE LEUKOCYTE ESTERASE 1+ (NEGATIVE); URINE NITRATE NEGATIVE (NEGATIVE)
[2021-03-29 17:49] LABS: URINE MUCUS PRESENT (NOT PRESENT)
== END ==
LOC: LAB 16:42
PROVIDERS: Internal Medicine
DX: N39.0 Urinary tract infection, site not specified (principal)

== ENCOUNTER 2021-04-26 17:53 | Emergency (ER) | payer MEDICARE ==
[~2021-04-26 17:53] MED LIST changes: -PERCOCET 325 MG1 TA2 PO
[2021-04-26 19:05] LABS: HEMATOCRIT 48.6 % (42.0-52.0); HEMOGLOBIN 16.3 g/dL (13.5-18.0); MEAN CELL VOLUME 94 fl (78-100); MEAN CORPUSCULAR HEMOGLOBIN 32 pg (27-31); MEAN CORPUSCULAR HGB CONC 34 g/dL (33-37); MEAN PLATELET VOLUME 8.2 fl (7.4-10.4); PLATELET COUNT 235 K/mm3 (130-400); RED BLOOD COUNT 5.15 M/mm3 (4.20-5.60); RED CELL DISTRIBUTION WIDTH 13.4 % (11.5-14.5); WHITE BLOOD COUNT 12.2 K/mm3 (4.8-10.8)
[2021-04-26 19:18] LABS: ALBUMIN 3.7 g/dL (3.4-4.8); POTASSIUM 4.1 mmol/L (3.5-5.1); SODIUM 138 mmol/L (136-145)
[2021-04-26 19:20] LABS: CALCIUM 9.3 mg/dL (8.3-10.5)
[2021-04-26 19:21] LABS: GLUCOSE 101 mg/dL (75-110)
[2021-04-26 19:22] LABS: CARBON DIOXIDE 23 mmol/L (23-31)
[2021-04-26 19:23] LABS: TOTAL BILIRUBIN 0.5 mg/dL (0.2-1.2)
[2021-04-26 19:26] LABS: AST-SGOT 18 U/L (5-34)
[2021-04-26 19:27] LABS: ALT/SGPT 17 U/L (0-55)
[2021-04-26 19:33] LABS: TROPONIN-I < 0.03 ng/mL (<0.030)
[2021-04-26 19:46] LABS: LYMPHOCYTE 10 % (20-51); MONOCYTE 16 % (3-10); NEUTROPHILS 73 % (42-75)
[2021-04-26 20:46] LABS: URINE APPEARANCE CLOUDY; URINE COLOR YELLOW
[2021-04-26 20:47] LABS: URINE BILIRUBIN NEGATIVE (NEGATIVE); URINE BLOOD 250 ery/uL (NEGATIVE); URINE GLUCOSE NEGATIVE (NEGATIVE); URINE KETONE NEGATIVE (NEGATIVE); URINE LEUKOCYTE ESTERASE 2+ (NEGATIVE); URINE MUCUS PRESENT (NOT PRESENT); URINE NITRATE POSITIVE (NEGATIVE); URINE PROTEIN(semi-quant) 1+ mg/dL (NEGATIVE); URINE UROBILINOGEN NORMAL (NORMAL); URINE WBC >50 /hpf (0-3)
[2021-04-27 00:32] VITALS: BP 145/92
== END 2021-04-27 00:32 | disposition short-term general hospital (02) ==
LOC: ED 17:53
PROVIDERS: Nurse Practitioner Family
DX: N10 Acute pyelonephritis (principal); Z90.79 Acquired absence of other genital organ(s); Z87.440 Personal history of urinary (tract) infections
CPT/HCPCS: J0696; J7030; Q9967

== ENCOUNTER → 2021-05-13 | Outpatient (CLI) | payer MEDICARE ==
[~2021-05-13] MED LIST changes: +PERCOCET 325 MG1 TA2 PO
[2021-05-13 17:42] LABS: BASO # 0.04 (0.02-0.10); EOS # 0.14 (0.04-0.40); EOS % 1.8 % (0.0-4.0); HEMATOCRIT 51.3 % (42.0-52.0); HEMOGLOBIN 16.9 g/dL (13.5-18.0); LYMPH# 2.43 (1.50-4.00); MEAN CELL VOLUME 96 fl (78-100); MEAN CORPUSCULAR HEMOGLOBIN 32 pg (27-31); MEAN CORPUSCULAR HGB CONC 33 g/dL (33-37); MEAN PLATELET VOLUME 8.8 fl (7.4-10.4); NEU # 3.97 (1.40-6.50); PLATELET COUNT 264 K/mm3 (130-400); RED BLOOD COUNT 5.36 M/mm3 (4.20-5.60); RED CELL DISTRIBUTION WIDTH 13.2 % (11.5-14.5); WHITE BLOOD COUNT 7.6 K/mm3 (4.8-10.8)
[2021-05-13 17:56] LABS: ALBUMIN 3.9 g/dL (3.4-4.8)
[2021-05-13 17:57] LABS: POTASSIUM 4.9 mmol/L (3.5-5.1)
[2021-05-13 17:58] LABS: CALCIUM 8.9 mg/dL (8.3-10.5)
[2021-05-13 17:59] LABS: TOTAL PROTEIN 7.6 g/dL (6.2-8.1)
[2021-05-13 18:01] LABS: TOTAL BILIRUBIN 0.4 mg/dL (0.2-1.2)
[2021-05-13 18:12] LABS: URINE APPEARANCE CLOUDY; URINE BILIRUBIN NEGATIVE (NEGATIVE); URINE COLOR REDDISH BROWN; URINE GLUCOSE NEGATIVE (NEGATIVE); URINE KETONE NEGATIVE (NEGATIVE); URINE NITRATE NEGATIVE (NEGATIVE); URINE PROTEIN(semi-quant) 2+ mg/dL (NEGATIVE); URINE UROBILINOGEN NORMAL (NORMAL)
[2021-05-13 18:13] LABS: URINE BLOOD 250 ery/uL (NEGATIVE); URINE LEUKOCYTE ESTERASE 1+ (NEGATIVE); URINE WBC 16-30 /hpf (0-3)
== END ==
LOC: LAB 17:25
PROVIDERS: Internal Medicine
DX: R31.0 Gross hematuria (principal); F44.5 Conversion disorder with seizures or convulsions

== ENCOUNTER 2021-06-19 07:16 | Emergency (ER) | payer MEDICARE ==
[~2021-06-19 07:16] MED LIST changes: -PERCOCET 325 MG1 TA2 PO
[2021-06-19 08:19] LABS: BASO # 0.01 (0.02-0.10); EOS % 1.6 % (0.0-4.0); HEMATOCRIT 46.2 % (42.0-52.0); HEMOGLOBIN 15.8 g/dL (13.5-18.0); LYMPH# 1.38 (1.50-4.00); MEAN CELL VOLUME 90 fl (78-100); MEAN CORPUSCULAR HEMOGLOBIN 31 pg (27-31); MEAN CORPUSCULAR HGB CONC 34 g/dL (33-37); MEAN PLATELET VOLUME 8.6 fl (7.4-10.4); MONO # 0.88 (0.20-0.80); NEU # 3.92 (1.40-6.50); PLATELET COUNT 186 K/mm3 (130-400); RED BLOOD COUNT 5.12 M/mm3 (4.20-5.60); RED CELL DISTRIBUTION WIDTH 13.4 % (11.5-14.5); WHITE BLOOD COUNT 6.3 K/mm3 (4.8-10.8)
[2021-06-19 08:38] LABS: POTASSIUM 3.8 mmol/L (3.5-5.1)
[2021-06-19 08:39] LABS: CALCIUM 9.5 mg/dL (8.3-10.5)
[2021-06-19 09:00] LABS: URINE APPEARANCE CLOUDY; URINE COLOR YELLOW
[2021-06-19 09:01] LABS: URINE BILIRUBIN NEGATIVE (NEGATIVE); URINE BLOOD 250 ery/uL (NEGATIVE); URINE GLUCOSE NEGATIVE (NEGATIVE); URINE KETONE NEGATIVE (NEGATIVE); URINE LEUKOCYTE ESTERASE 2+ (NEGATIVE); URINE NITRATE POSITIVE (NEGATIVE); URINE PROTEIN(semi-quant) 2+ mg/dL (NEGATIVE); URINE UROBILINOGEN NORMAL (NORMAL)
[2021-06-19] MEDS ORDERED: PERCOCET 325 MG1 TA2 PO (12:36)
[2021-06-19 12:45] VITALS: BP 149/83
== END 2021-06-19 12:44 | disposition home or self-care (01) ==
LOC: ED 07:16
PROVIDERS: Family Medicine
DX: N13.30 Unspecified hydronephrosis (principal); G40.909 Epilepsy, unspecified, not intractable, without status epilepticus; Z87.442 Personal history of urinary calculi; Z79.899 Other long term (current) drug therapy
CPT/HCPCS: J1885

== ENCOUNTER 2021-07-03 01:59 | Emergency (ER) | payer MEDICARE ==
[~2021-07-03] VITALS: Ht 180.3 cm; Wt 106.9 kg
[~2021-07-03 01:59] MED LIST changes: +PERCOCET 325 MG1 TA2 PO
[2021-07-03 03:20] LABS: BASO # 0.04 (0.02-0.10); EOS # 0.15 (0.04-0.40); EOS % 1.4 % (0.0-4.0); HEMATOCRIT 45.8 % (42.0-52.0); HEMOGLOBIN 15.2 g/dL (13.5-18.0); LYMPH# 2.05 (1.50-4.00); MEAN CELL VOLUME 93 fl (78-100); MEAN CORPUSCULAR HEMOGLOBIN 31 pg (27-31); MEAN CORPUSCULAR HGB CONC 33 g/dL (33-37); MEAN PLATELET VOLUME 8.1 fl (7.4-10.4); MONO # 1.15 (0.20-0.80); NEU # 7.52 (1.40-6.50); PLATELET COUNT 351 K/mm3 (130-400); RED BLOOD COUNT 4.91 M/mm3 (4.20-5.60); RED CELL DISTRIBUTION WIDTH 13.3 % (11.5-14.5); WHITE BLOOD COUNT 11.1 K/mm3 (4.8-10.8)
[2021-07-03 03:30] LABS: POTASSIUM 4.4 mmol/L (3.5-5.1)
[2021-07-03 03:31] LABS: CALCIUM 9.7 mg/dL (8.3-10.5)
[2021-07-03 04:38] LABS: URINE APPEARANCE CLOUDY; URINE BILIRUBIN NEGATIVE (NEGATIVE); URINE BLOOD 50 ery/uL (NEGATIVE); URINE COLOR YELLOW; URINE GLUCOSE NEGATIVE (NEGATIVE); URINE KETONE NEGATIVE (NEGATIVE); URINE LEUKOCYTE ESTERASE 2+ (NEGATIVE); URINE NITRATE NEGATIVE (NEGATIVE); URINE PROTEIN(semi-quant) 2+ mg/dL (NEGATIVE); URINE UROBILINOGEN NORMAL (NORMAL)
[2021-07-03 06:46] VITALS: BP 132/76
== END 2021-07-03 06:46 | disposition home or self-care (01) ==
LOC: ED 01:59
PROVIDERS: Family Medicine
DX: N18.9 Chronic kidney disease, unspecified (principal); N13.30 Unspecified hydronephrosis; F32.9 Major depressive disorder, single episode, unspecified; Z93.6 Other artificial openings of urinary tract status; Z79.899 Other long term (current) drug therapy
CPT/HCPCS: J3010

== ENCOUNTER 2021-07-18 06:17 | Emergency (ER) | payer MEDICARE ==
[~2021-07-18] VITALS: Ht 180.3 cm; Wt 102.2 kg
[2021-07-18 07:36] LABS: ALBUMIN 3.5 g/dL (3.4-4.8); POTASSIUM 4.9 mmol/L (3.5-5.1); SODIUM 140 mmol/L (136-145)
[2021-07-18 07:38] LABS: GLUCOSE 103 mg/dL (75-110)
[2021-07-18 07:39] LABS: BASO # 0.02 K/mm3 (0.02-0.10); EOS # 0.14 K/mm3 (0.04-0.40); EOS % 2.7 % (0.0-4.0); HEMATOCRIT 40.6 % (42.0-52.0); HEMOGLOBIN 13.8 g/dL (13.5-18.0); LYMPH# 1.53 K/mm3 (1.50-4.00); MEAN CELL VOLUME 94 fl (78-100); MEAN CORPUSCULAR HEMOGLOBIN 32 pg (27-31); MEAN CORPUSCULAR HGB CONC 34 g/dL (33-37); MEAN PLATELET VOLUME 8.9 fl (7.4-10.4); MONO # 0.58 K/mm3 (0.20-0.80); NEU # 2.78 K/mm3 (1.40-6.50); PLATELET COUNT 195 K/mm3 (130-400); RED BLOOD COUNT 4.32 M/mm3 (4.20-5.60); RED CELL DISTRIBUTION WIDTH 14.3 % (11.5-14.5); TOTAL PROTEIN 7.1 g/dL (6.2-8.1); WHITE BLOOD COUNT 5.1 K/mm3 (4.8-10.8)
[2021-07-18 07:40] LABS: CARBON DIOXIDE 22 mmol/L (23-31)
[2021-07-18 07:41] LABS: CALCIUM 9.3 mg/dL (8.3-10.5); TOTAL BILIRUBIN 0.4 mg/dL (0.2-1.2)
[2021-07-18 07:44] LABS: AST-SGOT 16 U/L (5-34)
[2021-07-18 07:45] LABS: ALT/SGPT 14 U/L (0-55)
[2021-07-18 07:45] LABS: URINE APPEARANCE CLOUDY; URINE BILIRUBIN NEGATIVE (NEGATIVE); URINE BLOOD 250 ery/uL (NEGATIVE); URINE COLOR YELLOW; URINE GLUCOSE NEGATIVE (NEGATIVE); URINE KETONE NEGATIVE (NEGATIVE); URINE LEUKOCYTE ESTERASE 2+ (NEGATIVE); URINE NITRATE NEGATIVE (NEGATIVE); URINE PROTEIN(semi-quant) 2+ mg/dL (NEGATIVE); URINE UROBILINOGEN NORMAL (NORMAL)
[2021-07-18 08:02] LABS: TROPONIN-I < 0.03 ng/mL (<0.030)
[2021-07-18] MEDS ORDERED: BACTRIM DS TAB1 EACH PO (08:32)
[2021-07-18 08:48] VITALS: BP 140/77
== END 2021-07-18 08:43 | disposition home or self-care (01) ==
LOC: ED 06:17
PROVIDERS: Nurse Practitioner
DX: R10.9 Unspecified abdominal pain (principal); E66.9 Obesity, unspecified; Z87.442 Personal history of urinary calculi; Z68.31 Body mass index [BMI] 31.0-31.9, adult; Z20.822 Contact with and (suspected) exposure to COVID-19

== ENCOUNTER 2021-08-12 04:05 | Emergency (ER) | payer MEDICARE ==
[~2021-08-12] VITALS: Ht 152.4 cm; Wt 102.1 kg
[2021-08-12 05:13] LABS: BASO # 0.02 K/mm3 (0.02-0.10); EOS # 0.11 K/mm3 (0.04-0.40); EOS % 1.2 % (0.0-4.0); HEMATOCRIT 49.4 % (42.0-52.0); HEMOGLOBIN 16.3 g/dL (13.5-18.0); MEAN CELL VOLUME 96 fl (78-100); MEAN CORPUSCULAR HEMOGLOBIN 32 pg (27-31); MEAN CORPUSCULAR HGB CONC 33 g/dL (33-37); MEAN PLATELET VOLUME 8.7 fl (7.4-10.4); NEU # 6.37 K/mm3 (1.40-6.50); PLATELET COUNT 236 K/mm3 (130-400); RED BLOOD COUNT 5.16 M/mm3 (4.20-5.60); RED CELL DISTRIBUTION WIDTH 15.1 % (11.5-14.5); WHITE BLOOD COUNT 9.5 K/mm3 (4.8-10.8)
[2021-08-12 05:19] LABS: ALBUMIN 4.3 g/dL (3.4-4.8); POTASSIUM 4.2 mmol/L (3.5-5.1)
[2021-08-12 05:20] LABS: CALCIUM 10.3 mg/dL (8.3-10.5)
[2021-08-12 05:21] LABS: TOTAL PROTEIN 8.2 g/dL (6.2-8.1)
[2021-08-12 05:23] LABS: TOTAL BILIRUBIN 0.6 mg/dL (0.2-1.2)
[2021-08-12 06:49] LABS: PH-URINE 7.5 (5.0 - 8.0); URINE APPEARANCE CLOUDY; URINE COLOR YELLOW; URINE GLUCOSE NEGATIVE (NEGATIVE); URINE KETONE 1+ (NEGATIVE); URINE PROTEIN(semi-quant) 1+ mg/dL (NEGATIVE)
[2021-08-12 06:50] LABS: URINE BILIRUBIN NEGATIVE (NEGATIVE); URINE BLOOD 250 ery/uL (NEGATIVE); URINE LEUKOCYTE ESTERASE 2+ (NEGATIVE); URINE NITRATE POSITIVE (NEGATIVE); URINE UROBILINOGEN NORMAL (NORMAL); URINE WBC >50 /hpf (0-3)
[2021-08-12 09:21] VITALS: BP 138/82
== END 2021-08-12 08:58 | disposition short-term general hospital (02) ==
LOC: ED 04:05
PROVIDERS: Physician Assistant
DX: K56.52 Intestinal adhesions [bands] with complete obstruction (principal); E66.9 Obesity, unspecified; F32.2 Major depressive disorder, single episode, severe without psychotic features; Z79.899 Other long term (current) drug therapy; Z68.41 Body mass index [BMI] 40.0-44.9, adult; Z20.822 Contact with and (suspected) exposure to COVID-19
CPT/HCPCS: J0696; J2270; J2550; J3010

== ENCOUNTER → 2021-08-27 | Outpatient (CLI) | payer MEDICARE ==
[2021-08-27 09:19] LABS: URINE APPEARANCE CLOUDY; URINE BILIRUBIN NEGATIVE (NEGATIVE); URINE BLOOD TRACE (NEGATIVE); URINE COLOR YELLOW; URINE GLUCOSE NEGATIVE (NEGATIVE); URINE KETONE NEGATIVE (NEGATIVE); URINE LEUKOCYTE ESTERASE 2+ (NEGATIVE); URINE NITRATE NEGATIVE (NEGATIVE); URINE PROTEIN(semi-quant) 2+ mg/dL (NEGATIVE); URINE UROBILINOGEN NORMAL (NORMAL)
== END ==
LOC: LAB 08:22
PROVIDERS: Internal Medicine
DX: R30.9 Painful micturition, unspecified (principal)

== ENCOUNTER → 2021-09-30 | Outpatient (CLI) | payer MEDICARE ==
[2021-09-30 13:04] LABS: PH-URINE 8.5 (5.0 - 8.0); URINE APPEARANCE CLOUDY; URINE BILIRUBIN NEGATIVE (NEGATIVE); URINE BLOOD 250 ery/uL (NEGATIVE); URINE COLOR YELLOW; URINE GLUCOSE NEGATIVE (NEGATIVE); URINE KETONE NEGATIVE (NEGATIVE); URINE LEUKOCYTE ESTERASE 2+ (NEGATIVE); URINE NITRATE POSITIVE (NEGATIVE); URINE PROTEIN(semi-quant) 2+ (NEGATIVE); URINE UROBILINOGEN NORMAL (NORMAL); URINE WBC 31-50 /hpf (0-3)
[2021-09-30 13:05] LABS: URINE MUCUS PRESENT (NOT PRESENT)
== END ==
LOC: LAB 12:13
PROVIDERS: Internal Medicine
DX: N39.0 Urinary tract infection, site not specified (principal)

== ENCOUNTER 2021-10-28 15:36 | Emergency (ER) | payer MEDICARE ==
[~2021-10-28 15:36] MED LIST changes: -MORPHINE SULFAT15 M7 PO
[2021-10-28 17:06] LABS: HEMATOCRIT 45.9 % (42.0-52.0); HEMOGLOBIN 15.3 g/dL (13.5-18.0); MEAN CELL VOLUME 97 fl (78-100); MEAN CORPUSCULAR HEMOGLOBIN 32 pg (27-31); MEAN CORPUSCULAR HGB CONC 33 g/dL (33-37); MEAN PLATELET VOLUME 8.5 fl (7.4-10.4); PLATELET COUNT 222 K/mm3 (130-400); RED BLOOD COUNT 4.73 M/mm3 (4.20-5.60); RED CELL DISTRIBUTION WIDTH 13.6 % (11.5-14.5); WHITE BLOOD COUNT 10.3 K/mm3 (4.8-10.8)
[2021-10-28 17:20] LABS: ALBUMIN 3.7 g/dL (3.4-4.8); POTASSIUM 4.3 mmol/L (3.5-5.1)
[2021-10-28 17:22] LABS: CALCIUM 9.3 mg/dL (8.3-10.5)
[2021-10-28 17:25] LABS: TOTAL BILIRUBIN 0.5 mg/dL (0.2-1.2)
[2021-10-28] MEDS ORDERED: MORPHINE SULFAT15 M7 PO (17:33)
[2021-10-28 17:42] VITALS: BP 142/69
[2021-10-28 18:00] LABS: LYMPHOCYTE 12 % (20-51); MONOCYTE 17 % (3-10); NEUTROPHILS 70 % (42-75)
== END 2021-10-28 17:39 | disposition home or self-care (01) ==
LOC: ED 15:36
PROVIDERS: Family Medicine
DX: N13.30 Unspecified hydronephrosis (principal); G40.909 Epilepsy, unspecified, not intractable, without status epilepticus; E66.9 Obesity, unspecified; F32.A Depression, unspecified; Z79.899 Other long term (current) drug therapy
CPT/HCPCS: J2270

== ENCOUNTER → 2021-10-28 | Outpatient (CLI) | payer MEDICARE ==
[~2021-10-28] MED LIST changes: +MORPHINE SULFAT15 M7 PO
[2021-10-28 15:55] LABS: PH-URINE 7.5 (5.0 - 8.0); URINE APPEARANCE CLOUDY; URINE BILIRUBIN NEGATIVE (NEGATIVE); URINE BLOOD 250 ery/uL (NEGATIVE); URINE COLOR YELLOW; URINE GLUCOSE NEGATIVE (NEGATIVE); URINE KETONE NEGATIVE (NEGATIVE); URINE LEUKOCYTE ESTERASE 2+ (NEGATIVE); URINE NITRATE POSITIVE (NEGATIVE); URINE PROTEIN(semi-quant) 2+ (NEGATIVE); URINE UROBILINOGEN NORMAL (NORMAL)
[2021-10-28 15:56] LABS: URINE WBC >50 /hpf (0-3)
== END ==
LOC: LAB 15:27
PROVIDERS: Internal Medicine
DX: N39.0 Urinary tract infection, site not specified (principal)

== ENCOUNTER 2021-11-05 16:56 | Emergency (ER) | payer MEDICARE ==
[~2021-11-05] VITALS: Wt 98.8 kg
[~2021-11-05 16:56] MED LIST changes: +MORPHINE SULFAT15 M7 PO
[2021-11-05 18:01] LABS: HEMATOCRIT 45.8 % (42.0-52.0); HEMOGLOBIN 15.4 g/dL (13.5-18.0); MEAN CELL VOLUME 95 fl (78-100); MEAN CORPUSCULAR HEMOGLOBIN 32 pg (27-31); MEAN CORPUSCULAR HGB CONC 34 g/dL (33-37); MEAN PLATELET VOLUME 8.4 fl (7.4-10.4); PLATELET COUNT 324 K/mm3 (130-400); RED BLOOD COUNT 4.84 M/mm3 (4.20-5.60); WHITE BLOOD COUNT 13.8 K/mm3 (4.8-10.8)
[2021-11-05 18:15] LABS: ALBUMIN 3.8 g/dL (3.4-4.8); POTASSIUM 4.2 mmol/L (3.5-5.1)
[2021-11-05 18:16] LABS: CALCIUM 9.4 mg/dL (8.3-10.5)
[2021-11-05 18:17] LABS: TOTAL PROTEIN 7.7 g/dL (6.2-8.1)
[2021-11-05 18:19] LABS: TOTAL BILIRUBIN 0.6 mg/dL (0.2-1.2)
[2021-11-05 18:22] LABS: URINE APPEARANCE HAZY; URINE BILIRUBIN NEGATIVE (NEGATIVE); URINE BLOOD 250 ery/uL (NEGATIVE); URINE COLOR YELLOW; URINE GLUCOSE NEGATIVE (NEGATIVE); URINE KETONE NEGATIVE (NEGATIVE); URINE LEUKOCYTE ESTERASE 2+ (NEGATIVE); URINE NITRATE POSITIVE (NEGATIVE); URINE PROTEIN(semi-quant) 2+ (NEGATIVE); URINE UROBILINOGEN NORMAL (NORMAL); URINE WBC 31-50 /hpf (0-3)
[2021-11-05 18:23] LABS: URINE MUCUS PRESENT (NOT PRESENT)
[2021-11-05 19:00] LABS: NEUTROPHILS 81 % (42-75)
[2021-11-05 19:01] LABS: LYMPHOCYTE 8 % (20-51); MONOCYTE 13 % (3-10)
[2021-11-05] MEDS ORDERED: CIPRO500 M1 PO (20:11)
[2021-11-05 20:33] VITALS: BP 131/78
== END 2021-11-05 20:33 | disposition home or self-care (01) ==
LOC: ED 16:56
PROVIDERS: Family Medicine
DX: N12 Tubulo-interstitial nephritis, not specified as acute or chronic (principal); F41.9 Anxiety disorder, unspecified; F32.A Depression, unspecified; K21.9 Gastro-esophageal reflux disease without esophagitis; G40.909 Epilepsy, unspecified, not intractable, without status epilepticus; Z90.6 Acquired absence of other parts of urinary tract; Z20.822 Contact with and (suspected) exposure to COVID-19; Z79.899 Other long term (current) drug therapy

== ENCOUNTER → 2021-11-25 | Outpatient (CLI) | payer MEDICARE ==
[2021-11-25 11:42] LABS: URINE APPEARANCE CLOUDY; URINE COLOR LIGHT YELLOW; URINE GLUCOSE NEGATIVE (NEGATIVE); URINE KETONE TR (NEGATIVE); URINE PROTEIN(semi-quant) 2+ (NEGATIVE)
[2021-11-25 11:43] LABS: URINE BILIRUBIN NEGATIVE (NEGATIVE); URINE BLOOD 250 ery/uL (NEGATIVE); URINE LEUKOCYTE ESTERASE 2+ (NEGATIVE); URINE NITRATE POSITIVE (NEGATIVE); URINE UROBILINOGEN NORMAL (NORMAL); URINE WBC >50 /hpf (0-3)
== END ==
LOC: LAB 10:49
PROVIDERS: Urology
DX: N39.0 Urinary tract infection, site not specified (principal)

== ENCOUNTER → 2022-01-03 | Outpatient (CLI) | payer MEDICARE ==
[2022-01-03 08:50] LABS: BASO # 0.05 K/mm3 (0.02-0.10); EOS % 1.3 % (0.0-4.0); HEMATOCRIT 47.6 % (42.0-52.0); HEMOGLOBIN 15.8 g/dL (13.5-18.0); LYMPH# 1.61 K/mm3 (1.50-4.00); MEAN CELL VOLUME 97 fl (78-100); MEAN CORPUSCULAR HEMOGLOBIN 32 pg (27-31); MEAN CORPUSCULAR HGB CONC 33 g/dL (33-37); MEAN PLATELET VOLUME 8.6 fl (7.4-10.4); MONO # 0.96 K/mm3 (0.20-0.80); NEU # 5.14 K/mm3 (1.40-6.50); PLATELET COUNT 233 K/mm3 (130-400); RED BLOOD COUNT 4.93 M/mm3 (4.20-5.60); RED CELL DISTRIBUTION WIDTH 14.8 % (11.5-14.5)
[2022-01-03 12:54] LABS: POTASSIUM 4.3 mmol/L (3.5-5.1)
[2022-01-03 12:55] LABS: CALCIUM 9.4 mg/dL (8.3-10.5)
[2022-01-03 12:56] LABS: TOTAL PROTEIN 7.4 g/dL (6.2-8.1)
[2022-01-03 12:58] LABS: TOTAL BILIRUBIN 0.4 mg/dL (0.2-1.2)
[2022-01-03 21:47] LABS: TESTOSTERONE 175 ng/dL (221-716)
== END ==
LOC: LAB 08:22
PROVIDERS: Internal Medicine
DX: Z12.5 Encounter for screening for malignant neoplasm of prostate (principal); F44.5 Conversion disorder with seizures or convulsions; K90.9 Intestinal malabsorption, unspecified; E78.2 Mixed hyperlipidemia; R31.0 Gross hematuria; E29.1 Testicular hypofunction

== ENCOUNTER → 2022-01-24 | Outpatient (CLI) | payer MEDICARE ==
[2022-01-24 12:51] LABS: PH-URINE 8.5 (5.0 - 8.0); URINE APPEARANCE CLOUDY; URINE COLOR YELLOW; URINE GLUCOSE NEGATIVE (NEGATIVE); URINE PROTEIN(semi-quant) 1+ (NEGATIVE)
[2022-01-24 12:52] LABS: URINE BILIRUBIN NEGATIVE (NEGATIVE); URINE BLOOD 50 ery/uL (NEGATIVE); URINE KETONE NEGATIVE (NEGATIVE); URINE LEUKOCYTE ESTERASE 2+ (NEGATIVE); URINE NITRATE POSITIVE (NEGATIVE); URINE UROBILINOGEN NORMAL (NORMAL)
== END ==
LOC: LAB 10:26
PROVIDERS: Internal Medicine
DX: N39.0 Urinary tract infection, site not specified (principal)

== ENCOUNTER → 2022-02-04 | Outpatient (CLI) | payer MEDICARE ==
[2022-02-04 10:36] LABS: URINE APPEARANCE CLOUDY; URINE BILIRUBIN NEGATIVE (NEGATIVE); URINE BLOOD 250 ery/uL (NEGATIVE); URINE COLOR YELLOW; URINE GLUCOSE NEGATIVE (NEGATIVE); URINE KETONE NEGATIVE (NEGATIVE); URINE LEUKOCYTE ESTERASE 2+ (NEGATIVE); URINE NITRATE POSITIVE (NEGATIVE); URINE PROTEIN(semi-quant) 1+ (NEGATIVE); URINE UROBILINOGEN NORMAL (NORMAL)
[2022-02-04 10:37] LABS: URINE MUCUS PRESENT (NOT PRESENT); URINE WBC >50 /hpf (0-3)
== END ==
LOC: LAB 08:33
PROVIDERS: Internal Medicine
DX: N39.0 Urinary tract infection, site not specified (principal)

== ENCOUNTER → 2022-02-10 | Outpatient (CLI) | payer MEDICARE | LOC: LAB 09:26 | DX: Z01.89 Encounter for other specified special examinations (principal) ==

== ENCOUNTER → 2022-02-14 | Outpatient (CLI) | payer MEDICARE ==
[2022-02-14 11:16] LABS: POTASSIUM 4.4 mmol/L (3.5-5.1)
[2022-02-14 11:17] LABS: CALCIUM 8.7 mg/dL (8.3-10.5)
== END ==
LOC: LAB 10:34
PROVIDERS: Internal Medicine
DX: I10 Essential (primary) hypertension (principal)

== ENCOUNTER 2022-02-19 09:19 | Outpatient (RCR) | payer MEDICARE ==
[2022-02-10 09:54] VITALS: BP 136/83
[2022-02-11 09:36] VITALS: BP 138/87
[2022-02-12 09:15] VITALS: BP 141/82
[2022-02-13 09:14] VITALS: BP 139/86
[2022-02-13 10:21] VITALS: BP 133/88
[2022-02-14 09:43] VITALS: BP 132/80
[2022-02-15 09:32] VITALS: BP 143/83
[2022-02-16 09:15] VITALS: BP 140/83
[2022-02-17 09:44] VITALS: BP 119/75
[2022-02-18 08:52] VITALS: BP 145/91
[2022-02-18 09:54] VITALS: BP 143/88
[~2022-02-19] VITALS: Ht 152.4 cm; Wt 98.8 kg
[2022-02-19 09:30] VITALS: BP 153/56; BP 153/86
== END 2022-03-01 | disposition home or self-care (01) ==
LOC: AMSURD
DX: N39.0 Urinary tract infection, site not specified (principal)
CPT/HCPCS: J3260; J7050

== ENCOUNTER → 2022-02-24 | Outpatient (CLI) | payer MEDICARE | LOC: RAD 09:28 | DX: N13.30 Unspecified hydronephrosis (principal); Z90.49 Acquired absence of other specified parts of digestive tract; Z90.6 Acquired absence of other parts of urinary tract | CPT/HCPCS: Q9967 ==

== ENCOUNTER 2022-03-07 00:14 | Emergency (ER) | payer MEDICARE ==
[~2022-03-07] VITALS: Ht 180.3 cm; Wt 104.8 kg
[2022-03-07 01:17] LABS: BASO # 0.03 K/mm3 (0.02-0.10); EOS # 0.06 K/mm3 (0.04-0.40); EOS % 0.8 % (0.0-4.0); HEMATOCRIT 45.2 % (42.0-52.0); LYMPH# 0.88 K/mm3 (1.50-4.00); MEAN CELL VOLUME 95 fl (78-100); MEAN CORPUSCULAR HEMOGLOBIN 31 pg (27-31); MEAN CORPUSCULAR HGB CONC 33 g/dL (33-37); MEAN PLATELET VOLUME 8.8 fl (7.4-10.4); MONO # 1.48 K/mm3 (0.20-0.80); NEU # 4.61 K/mm3 (1.40-6.50); PLATELET COUNT 157 K/mm3 (130-400); RED BLOOD COUNT 4.78 M/mm3 (4.20-5.60); RED CELL DISTRIBUTION WIDTH 13.2 % (11.5-14.5); WHITE BLOOD COUNT 7.2 K/mm3 (4.8-10.8)
[2022-03-07 01:25] LABS: URINE APPEARANCE HAZY; URINE COLOR YELLOW
[2022-03-07 01:26] LABS: URINE BILIRUBIN NEGATIVE (NEGATIVE); URINE BLOOD 250 ery/uL (NEGATIVE); URINE GLUCOSE NEGATIVE (NEGATIVE); URINE KETONE NEGATIVE (NEGATIVE); URINE LEUKOCYTE ESTERASE 2+ (NEGATIVE); URINE MUCUS PRESENT (NOT PRESENT); URINE NITRATE POSITIVE (NEGATIVE); URINE PROTEIN(semi-quant) 1+ (NEGATIVE); URINE UROBILINOGEN NORMAL (NORMAL); URINE WBC 16-30 /hpf (0-3)
[2022-03-07 01:29] LABS: POTASSIUM 3.9 mmol/L (3.5-5.1)
[2022-03-07 01:30] LABS: CALCIUM 8.7 mg/dL (8.3-10.5)
[2022-03-07] MEDS ORDERED: CEPHALEXIN500 M1 PO (03:43)
[2022-03-07] MEDS ORDERED: GUAIFENESIN AND5 ML PO (03:43)
[2022-03-07 05:16] VITALS: BP 140/87
== END 2022-03-07 05:17 | disposition home or self-care (01) ==
LOC: ED 00:14
PROVIDERS: Family Medicine
DX: U07.1 COVID-19 (principal); Z28.311 Partially vaccinated for COVID-19
CPT/HCPCS: Q0222

== ENCOUNTER 2022-03-20 05:05 | Emergency (ER) | payer MEDICARE ==
[~2022-03-20] VITALS: Ht 180.3 cm; Wt 104.6 kg
[~2022-03-20 05:05] MED LIST changes: +CEPHALEXIN500 M1 PO; +GUAIFENESIN AND5 ML PO
[2022-03-20 06:30] LABS: BASO # 0.03 K/mm3 (0.02-0.10); EOS # 0.16 K/mm3 (0.04-0.40); EOS % 1.6 % (0.0-4.0); HEMATOCRIT 49.7 % (42.0-52.0); HEMOGLOBIN 16.6 g/dL (13.5-18.0); LYMPH# 1.82 K/mm3 (1.50-4.00); MEAN CELL VOLUME 96 fl (78-100); MEAN CORPUSCULAR HEMOGLOBIN 32 pg (27-31); MEAN CORPUSCULAR HGB CONC 33 g/dL (33-37); MEAN PLATELET VOLUME 8.4 fl (7.4-10.4); MONO # 1.27 K/mm3 (0.20-0.80); NEU # 6.85 K/mm3 (1.40-6.50); PLATELET COUNT 272 K/mm3 (130-400); RED BLOOD COUNT 5.17 M/mm3 (4.20-5.60); RED CELL DISTRIBUTION WIDTH 13.5 % (11.5-14.5); WHITE BLOOD COUNT 10.2 K/mm3 (4.8-10.8)
[2022-03-20 06:34] LABS: POTASSIUM 4.2 mmol/L (3.5-5.1)
[2022-03-20 06:35] LABS: CALCIUM 8.8 mg/dL (8.3-10.5)
[2022-03-20 06:45] LABS: URINE APPEARANCE CLOUDY; URINE BILIRUBIN NEGATIVE (NEGATIVE); URINE BLOOD 250 ery/uL (NEGATIVE); URINE COLOR LT YELLOW; URINE GLUCOSE NEGATIVE (NEGATIVE); URINE KETONE NEGATIVE (NEGATIVE); URINE LEUKOCYTE ESTERASE 2+ (NEGATIVE); URINE NITRATE POSITIVE (NEGATIVE); URINE PROTEIN(semi-quant) 2+ (NEGATIVE); URINE UROBILINOGEN NORMAL (NORMAL); URINE WBC >50 /hpf (0-3)
[2022-03-20] MEDS ORDERED: CEPHALEXIN500 M1 PO (07:43)
[2022-03-20 08:00] VITALS: BP 115/87
== END 2022-03-20 08:05 | disposition home or self-care (01) ==
LOC: ED 05:05
PROVIDERS: Family Medicine
DX: N39.0 Urinary tract infection, site not specified (principal); N18.9 Chronic kidney disease, unspecified; Z90.49 Acquired absence of other specified parts of digestive tract; Z28.311 Partially vaccinated for COVID-19
CPT/HCPCS: J0696; J2270

== ENCOUNTER → 2022-05-27 | Outpatient (CLI) | payer MEDICARE ==
[2022-05-27 09:06] LABS: BASO # 0.03 K/mm3 (0.02-0.10); EOS # 0.18 K/mm3 (0.04-0.40); EOS % 2.5 % (0.0-4.0); HEMATOCRIT 44.7 % (42.0-52.0); HEMOGLOBIN 14.9 g/dL (13.5-18.0); LYMPH# 1.41 K/mm3 (1.50-4.00); MEAN CELL VOLUME 95 fl (78-100); MEAN CORPUSCULAR HEMOGLOBIN 32 pg (27-31); MEAN CORPUSCULAR HGB CONC 33 g/dL (33-37); MEAN PLATELET VOLUME 8.6 fl (7.4-10.4); MONO # 0.86 K/mm3 (0.20-0.80); NEU # 4.67 K/mm3 (1.40-6.50); PLATELET COUNT 222 K/mm3 (130-400); RED BLOOD COUNT 4.73 M/mm3 (4.20-5.60); RED CELL DISTRIBUTION WIDTH 14.7 % (11.5-14.5); WHITE BLOOD COUNT 7.3 K/mm3 (4.8-10.8)
[2022-05-27 15:59] LABS: ALBUMIN 3.6 g/dL (3.4-4.8)
[2022-05-27 16:01] LABS: CALCIUM 8.9 mg/dL (8.3-10.5)
[2022-05-27 16:04] LABS: TOTAL BILIRUBIN 0.6 mg/dL (0.2-1.2)
[2022-05-28 00:30] LABS: TESTOSTERONE 514 ng/dL (221-716)
== END ==
LOC: LAB 08:34
PROVIDERS: Internal Medicine
DX: F44.5 Conversion disorder with seizures or convulsions (principal); K90.9 Intestinal malabsorption, unspecified; R31.0 Gross hematuria; E78.2 Mixed hyperlipidemia

== ENCOUNTER → 2022-11-10 | Outpatient (CLI) | payer MEDICARE ==
[2022-11-10 10:52] LABS: URINE APPEARANCE HAZY; URINE BILIRUBIN NEGATIVE (NEGATIVE); URINE BLOOD 50 ery/uL (NEGATIVE); URINE COLOR YELLOW; URINE GLUCOSE NEGATIVE (NEGATIVE); URINE KETONE NEGATIVE (NEGATIVE); URINE LEUKOCYTE ESTERASE 2+ (NEGATIVE); URINE MUCUS PRESENT (NOT PRESENT); URINE NITRATE POSITIVE (NEGATIVE); URINE PROTEIN(semi-quant) 1+ (NEGATIVE); URINE UROBILINOGEN NORMAL (NORMAL)
== END ==
LOC: LAB 10:28
PROVIDERS: Family Medicine
DX: N39.0 Urinary tract infection, site not specified (principal); R19.7 Diarrhea, unspecified

== ENCOUNTER 2022-12-20 00:49 | Emergency (ER) | payer MEDICARE ==
[~2022-12-20] VITALS: Ht 180.3 cm; Wt 108.9 kg
[2022-12-20 01:38] VITALS: BP 115/78
== END 2022-12-20 01:40 | disposition left against medical advice (07) ==
LOC: ED 00:49
DX: G47.30 Sleep apnea, unspecified (principal); E66.9 Obesity, unspecified

== ENCOUNTER → 2023-01-03 | Outpatient (CLI) | payer MEDICARE ==
[2023-01-03 09:09] LABS: BASO # 0.03 K/mm3 (0.02-0.10); EOS # 0.13 K/mm3 (0.04-0.40); EOS % 1.4 % (0.0-4.0); HEMATOCRIT 52.1 % (42.0-52.0); HEMOGLOBIN 17.6 g/dL (13.5-18.0); LYMPH# 2.19 K/mm3 (1.50-4.00); MEAN CELL VOLUME 95 fl (78-100); MEAN CORPUSCULAR HEMOGLOBIN 32 pg (27-31); MEAN CORPUSCULAR HGB CONC 34 g/dL (33-37); MEAN PLATELET VOLUME 8.6 fl (7.4-10.4); MONO # 1.31 K/mm3 (0.20-0.80); NEU # 5.17 K/mm3 (1.40-6.50); PLATELET COUNT 197 K/mm3 (130-400); RED CELL DISTRIBUTION WIDTH 14.2 % (11.5-14.5)
[2023-01-03 09:16] LABS: ALBUMIN 3.9 g/dL (3.4-4.8); POTASSIUM 4.1 mmol/L (3.5-5.1)
[2023-01-03 09:17] LABS: CALCIUM 9.4 mg/dL (8.3-10.5)
[2023-01-03 09:20] LABS: TOTAL BILIRUBIN 0.6 mg/dL (0.2-1.2)
[2023-01-03 10:34] LABS: ERYTHROCYTE SEDIMENTATION RATE 3 mm/hr (0-20)
== END ==
LOC: LAB 08:44
PROVIDERS: Internal Medicine
DX: Z12.5 Encounter for screening for malignant neoplasm of prostate (principal); F44.5 Conversion disorder with seizures or convulsions; G47.33 Obstructive sleep apnea (adult) (pediatric); E29.1 Testicular hypofunction; E78.2 Mixed hyperlipidemia; K90.9 Intestinal malabsorption, unspecified

== ENCOUNTER → 2023-08-03 | Outpatient (CLI) | payer MEDICARE ==
[~2023-08-03] MED LIST changes: +AMOXICILLIN AND1 TA2 PO; +CRANBERRY400 M2 PO; +DIVALPROEX SOD500 MG PO; +LEVOTHYROXIN0.025 MG PO; +SERTRALINE HYD100 MG PO; +SODIUM BIC650 MG/TAB PO; +ZOLPIDEM TART10 MG PO
[2023-08-03 08:34] LABS: URINE APPEARANCE CLOUDY; URINE BILIRUBIN NEGATIVE (NEGATIVE); URINE BLOOD 250 ery/uL (NEGATIVE); URINE COLOR YELLOW; URINE GLUCOSE NEGATIVE (NEGATIVE); URINE KETONE NEGATIVE (NEGATIVE); URINE LEUKOCYTE ESTERASE 2+ (NEGATIVE); URINE NITRATE POSITIVE (NEGATIVE); URINE PROTEIN(semi-quant) 3+ (NEGATIVE); URINE UROBILINOGEN NORMAL (NORMAL); URINE WBC >50 /hpf (0-3)
[2023-08-03 08:35] LABS: URINE MUCUS PRESENT (NOT PRESENT)
== END ==
LOC: LAB 08:04
PROVIDERS: Internal Medicine
DX: R82.90 Unspecified abnormal findings in urine (principal)